=== PATIENT | male | born 1965 | race Caucasian/White ===

== ENCOUNTER 2018-02-11 07:00 | Inpatient (IN) | payer OTHER ==
[~2018-02-11] VITALS: Ht 170.2 cm; Wt 78.5 kg
[2018-02-13] MEDS ORDERED: TRAMADOL HCL50 MG PO (09:45)
[2018-02-13] MEDS ORDERED: BACLOFEN10 MG PO (09:45)
[2018-02-21] MEDS ORDERED: GABAPENTIN800 MG PO (11:44)
[2018-02-21] MEDS ORDERED: DOCUSATE SODIU100 MG PO (11:45)
[2018-02-21] MEDS ORDERED: CLONAZEPAM1 MG PO (11:46)
[2018-02-21] MEDS ORDERED: PERCOCET 5-3251 EACH PO (11:46)
[2018-02-21] MEDS ORDERED: AMOX-CLAV 875-1 EACH PO (11:46)
== END 2018-02-22 15:15 | disposition home or self-care (01) | DRG 455 ==
LOC: O/R 02-21 05:21 → PED 02-21 05:21 → SURG 02-21 07:00 → PED 02-21 13:20
PROVIDERS: Orthopaedic Surgery Orthopaedic Surgery of the Spine
PROC: 0SG0071 Fusion of Lumbar Vertebral Joint with Autologous Tissue Substitute, Posterior Approach, Posterior Column, Open Approach (ICD-10-PCS; 2018-02-21)
PROC: 0ST20ZZ Resection of Lumbar Vertebral Disc, Open Approach (ICD-10-PCS; 2018-02-21)
PROC: 0SG00AJ Fusion of Lumbar Vertebral Joint with Interbody Fusion Device, Posterior Approach, Anterior Column, Open Approach (ICD-10-PCS; 2018-02-21)
PROC: 07DS3ZZ Extraction of Vertebral Bone Marrow, Percutaneous Approach (ICD-10-PCS; 2018-02-21)
PROC: 0SG00A0 Fusion of Lumbar Vertebral Joint with Interbody Fusion Device, Anterior Approach, Anterior Column, Open Approach (ICD-10-PCS; principal; 2018-02-21 10:00)
DX: M51.16 Intervertebral disc disorders with radiculopathy, lumbar region (principal); M47.26 Other spondylosis with radiculopathy, lumbar region; M48.061 Spinal stenosis, lumbar region without neurogenic claudication